=== PATIENT | male | born 1985 | race Caucasian/White ===

== ENCOUNTER 2018-11-12 07:17 | Day surgery (SDC) | payer OTHER ==
[~2018-11-12 07:17] MED LIST: AMOX1TAB12 PO; IBUPROFEN800 MG PO; PERCOCET 5-3251 EACH PO
== END 2018-11-12 12:35 | disposition home or self-care (01) ==
LOC: CIR.AMB 07:17 → ADM 08:15 → CIR.AMB 12:35
DX: I86.1 Scrotal varices (principal)